=== PATIENT | male | born 1995 | race Caucasian/White ===

== ENCOUNTER 2024-02-06 20:06 | Emergency (ER) | payer OTHER ==
[~2024-02-06] VITALS: Ht 167.6 cm; Wt 77.1 kg
[2024-02-06 20:13] VITALS: BP 115/56; PULSE 107; RESP 16; TEMP 98.9; O2SAT 99
== END 2024-02-06 21:15 ==
LOC: MED 20:06
DX: S00.10XA Contusion of unspecified eyelid and periocular area, initial encounter (principal); S00.81XA Abrasion of other part of head, initial encounter; V89.2XXA Person injured in unspecified motor-vehicle accident, traffic, initial encounter; Y93.89 Activity, other specified; Y92.410 Unspecified street and highway as the place of occurrence of the external cause; Y99.8 Other external cause status
CPT/HCPCS: 99283